=== PATIENT | female | born 1955 | race Caucasian/White ===

== ENCOUNTER 2023-10-29 08:25 | Outpatient (CLI) | payer OTHER, SELFPAY ==
--- NOTE | 2023-10-29 08:35 | ECG_ITS ---
Test Date: 2023-10-29 08:57:17 Measurements Intervals [place] Rate: 77 P: 42 MI: 172 QRS: -11 QRSD: 91 T: 49 QT: 376 QTc: 426 Interpretive Statements SINUS RHYTHM NORMAL ECG No previous ECG available for comparison Electronically Signed On 10-29-2023 11:37:25 CDT by Blake Omer D.O.
[2023-10-29 10:01] LABS: Hematocrit 44.7 % (37.0-47.0); Hemoglobin 14.4 g/dL (12.0-15.0)
== END 2023-10-29 08:26 | disposition home or self-care (01) ==
LOC: ANHSURGERY 08:31
PROVIDERS: Anesthesiology; PCP Internal Medicine; Visit Provider Surgery Plastic and Reconstructive Surgery
DX: Z01.818 Encounter for other preprocedural examination (principal); Z41.1 Encounter for cosmetic surgery
CPT/HCPCS: 36415; 85014; 85018; 93005

== ENCOUNTER 2023-10-30 00:51 | Day surgery (SDC) | payer OTHER, SELFPAY ==
[2023-10-25 08:07] VITALS: BMI 22.3
--- NOTE | 2023-10-25 08:15 | PC.NURSE ---
Report to the Outpatient Waiting Room, entrance under the green pavilion located off [facility], at time _0730_ on date _[id number]_. Planned Procedure Time: _0930_. Time changes happen often and if your time is changed the preop area will call you the afternoon before. - You and your visitor will be asked to self-screen and do not enter if you have any COVID symptoms. - A mask is optional within the hospital at this time. Patients may have clear liquids (water, carbonated beverages, clear teas, apple juice) until 3 hours prior to surgery with a maximum of 20 ounces. - No food from midnight until time of surgery Take the following medications with a SIP of water the morning of surgery: ___None DO NOT STOP ANY OF YOUR OTHER PRESCRIPTION MEDICATIONS PRIOR TO SURGERY ?EXCEPT THE FOLLOWING Medications to discontinue per physician None Date to take last dose Please no make-up, nail nepali, hairspray, perfume, deodorant, or body powder the day of surgery. No jewelry (including any body piercings) or valuables the day of surgery, leave them at home. Please take a shower or bath the night before, or the morning of, surgery with an antibacterial soap. Wear comfortable, loose fitting clothing. - Jewelry must be removed prior to entering the operating room. Rings and piercings that are not removed may be cut off. - The hospital will not accept responsibility for valuables. - Please leave all valuables, including medications, at home the day of surgery. If you are going home after surgery, a licensed spotter driver must drive you home. - NO public transportation without another adult if you receive anesthesia. - We recommend that an adult stay with you for 24 hours following discharge. - We also recommend that you do not drive, make important decision, drink alcoholic beverages, or take any drugs that were not prescribed by your health care provider for at least 24 hours after your discharge time. Follow any additional instructions given to you from your surgeon. If you or anyone in your household have experienced Covid symptoms in the past week, please notify your surgeon or the nurse liaison at the phone number below for possible testing. Telephone instructions given to __Mónica____and asked if any additional questions and then verbalized understanding. Patient advised to call surgeon office or pre surgery nurse liaison [phone] if any additional questions.
[2023-10-30] VITALS (10 sets, daily range): BP systolic 94–139; BP diastolic 54–77; PULSE 70–105; RESP 14–18; TEMP 36.1–36.9; O2SAT 96–100
[2023-10-30] MEDS: LACTATED RINGERS 1,000 ML 30 ML IV CONT ×2 (09:00→16:52)
[2023-10-30 09:01] LABS: Urine Cotinine NEGATIVE
--- NOTE | 2023-10-30 10:08 | P.PNAN_ITS ---
Anes - Initial Pre Proc Eval Procedure: Operation Date: 10/30/23 10:30 Proposed Procedures p Abdominoplasty with Liposuction - Allan Rodriguez MD s Bilateral Breast Mastopexy - Allan Rodriguez MD Date/Time: 10/30/23 10:08 Surgeon: Allan Rodriguez MD Pre Op Diagnosis: skin laxity, breast ptosis Patient Data Age: 68 Gender: F Height: 1.63 m Weight: 60 kg Last Vital Signs Temp 98.5 F 10/30/23 09:12 Pulse 70 10/30/23 09:12 Resp 16 10/30/23 09:12 BP 99/62 L 10/30/23 09:12 Pulse Ox 100 10/30/23 09:12 O2 Del Method Room Air 10/30/23 09:12 Allergies Allergy/AdvReac Type Severity Reaction Status Date / Time prochlorperazine Allergy Intermediate Other Verified 10/30/23 09:10 [From Compazine] Home Medications Medication Instructions Recorded Confirmed Type No Home Medications 10/25/23 10/30/23 History Laboratory Tests 10/30/23 08:38 Cotinine Negative Patient hx anesthesia problems: none Family hx anesthesia problems: none Results Review: All pre-operative results and documents have been reviewed as part of the pre- operative evaluation. [facility] Past Medical History Medical History (Updated 07/20/20 @ 15:02 by Jamila Jasmine) Ganglion cyst of dorsum of right wrist Surgical History Surgical History (Updated 07/19/20 @ 17:10 by Jamila Jasmine) History of adenoidectomy Hx of removal of ovary Hx of tonsillectomy Family History Family History (Updated 07/19/20 @ 17:10 by Jamila Jasmine) Mother Diabetes mellitus Social History Social History (Updated 07/19/20 @ 17:11 by Jamila Jasmine) Smoking status: Never smoker Alcohol intake: current Drinks per week: 2 Substance use: never Living arrangements: with family Spiritual care concerns: No Anes - Eval Final PreProcedure Day of Procedure 10/30/23 10:08 Patient weight: normal Heart: regular rate and rhythm Lungs: clear to auscultation Airway: Mallampati scale class II Neurological: alert and oriented Last oral intake: >/= 8 hours ASA classification: II Emergent: no Anesthetic plan: proceed Anesthesia type and monitoring: general ETT and standard monitoring Results Review: All pre-operative results and documents have been reviewed as part of the pre- operative evaluation. Informed Consent: The patient's anesthetic plan and its attendant risks and benefits were discussed with the patient/family/POA. Questions were solicited and answers provided to the satisfaction of the patient/family/POA.
--- NOTE | 2023-10-30 10:45 | WPDHPUPDATE1 ---
History and Physical Update Update Date/Time: 10/30/23 10:45 History and Physical has been reviewed, including an updated exam of the patient. There are NO changes in the patient's condition. Risks, benefits, and alternatives have been discussed and questions answered. Patient agrees to proceed with procedure.
--- NOTE | 2023-10-30 10:45 | W.PM.PROC2 ---
Procedure Note - Detailed Date of Procedure 10/30/23 Pre-op Diagnosis skin laxity, breast ptosis Post-op Diagnosis Same Procedure Performed 1. Bilateral Mastopexy 2. Bilateral progressive tension abdominoplasty with suction lipectomy Surgeon Allan Rodriguez MD Anesthesia General Findings Bilateral Inverted T Superior Pedicle Tissue removed: 1388.8 grams Lipoaspirate: 2,000 cc Description of Procedure They are here today for the above procedures. Previously and again today the risks, benefits, alternatives were discussed in extensive detail. I wanted them to be very realistic about the risks involved as well as expectations. We discussed aftercare and what to monitor for. I was very upfront about the risks of wound breakdown leading to loss of skin, open wounds, and need for additional procedures with permanent abdominal deformity. We discussed DVT/PE risks and management. Made sure answered all of their questions to their satisfaction today and consent was obtained. They were marked in the preoperative holding area with their verification. Again today I provided explanations of realistic expectations and limitations of the procedure while markings. The patient was taken to the operating room. Anesthesia was provided by anesthesiology. A Ramos catheter was started. Placed prone on the operating room table with care taken to protect from injury. Prepped and draped in a standard sterile fashion. A surgical time-out was taken. Stab incisions were made and tumescent solution was infiltrated. Once adequate time was allowed for hemostasis a 5mm basket and 3mm multi hole cannula were utilized to complete suction lipectomy based on S.A.F.E. technique in multiple planes and passes. Suction lipectomy continued to result based on pre-operative planning, intra-operative observation, and rolling pinch test which were in full agreement. Patient was then placed supine with care taken to protect from injury. Mastopexy Eleven blade was utilized to make a stab incision and infiltrated with low volume tumescent solution. The breast was tailor tacked into place. I tailor tacked the breast into position. Placed her in a sitting position. Verified the nipple-areolar location based on preoperative planning as well as intraoperative observations and measurements in full agreement. She was placed supine. I de-epithelialized the pedicle. I then de-epithelialized the inferior breast tissue to create an autoaugmentation flap based on intercostal carbon setter. I elevated medial and lateral tissue flaps as well for planned closure. The autoaugmentation flap was sutured to the chest wall with 2-0 PDS. I closed along the IMF with 2-0 Stratafix. Along the vertical with 2-0 PDS. I closed around the Judson with 3-0 strata fix. 3-0 Monocryl along the vertical. 3-0 Stratafix along the IMF. I finally closed everything with running subcuticular 4-0 Monocryl and tissue glue. Abdomen I placed the patient in a flexed position to verify the upper and lower markings would reach. I then placed supine. A thorough abdominal examination was completed. Stab incisions were made and tumescent solution infiltrated. Stab incisions were made and tumescent solution was infiltrated. Once adequate time was allowed for hemostasis a 5mm basket and 3mm multi hole cannula were utilized to complete suction lipectomy based on S.A.F.E. technique in multiple planes and passes. Suction lipectomy continued to result based on pre-operative planning, intra-operative observation, and rolling pinch test which were in full agreement. A 10 blade was used to make the upper incision. I continued dissection down to the level of fascia. Elevated just what was necessary for repair of the diastasis. I then again flexed the bed to verify the upper skin flap would reach the lower markings without tension. Once verified I placed her supine once again and a 10 blade used to make the lower
[2023-10-30] MEDS: TRANEXAMIC ACID 1,000MG/ISO100 1,000 MG/100 ML BAG 200 MG IVPB (11:00)
[2023-10-30] MEDS: ceFAZolin 2 GM/D5W 50 ML 2 GM/50 ML BAG IVPB (11:21)
[2023-10-30] MEDS: BUPIVACAINE/EPINEPHRINE 0.5% 10 ML VIAL 60 ML INFILTRATE (13:12)
--- NOTE | 2023-10-30 13:49 | SUR.OPER ---
13:49 SUPINE ABDOMINAL LIPOSUCTION START.
[2023-10-30] MEDS: ceFAZolin SODIUM 1 GM VIAL 2 GM IV PUSH (15:21)
[2023-10-30] MEDS: LACTATED RINGERS IRRIG 1,000 ML, LIDOCAINE HCL 1% LOCAL INJ 50 ML, EPINEPHrine HCL INJ ... INFILTRATE (15:58)
[2023-10-30] MEDS: fentaNYL CITRATE INJ (*CRX) 100 MCG/2 ML VIAL 25 MCG IV PUSH ×4 (17:22→17:46)
[2023-10-30] MEDS: oxyCODONE HCL (*CRX) 5 MG TAB IR PO (18:14)
[2023-10-30] MEDS: ONDANSETRON HCL ODT 4 MG TABLET PO (19:22)
== END 2023-10-30 19:40 | disposition home or self-care (01) ==
PROVIDERS: PCP Internal Medicine; Visit Provider Surgery Plastic and Reconstructive Surgery
PROC: (CPT 19316; principal; 2023-10-30 10:30)
PROC: (CPT 19316; 2023-10-30 10:30)
DX: Z41.1 Encounter for cosmetic surgery (principal); L57.4 Cutis laxa senilis; N64.81 Ptosis of breast; Z98.890 Other specified postprocedural states; Z80.8 Family history of malignant neoplasm of other organs or systems; Z82.49 Family history of ischemic heart disease and other diseases of the circulatory system
CPT/HCPCS: 19316; 15830; 15847; 15877; 80307; A9270; J0171; J0690; J1100; J1170; J2250; J2371; J2405; J2704; J3010; J7120